=== PATIENT | female | born 1985 | race Asian ===

== ENCOUNTER 2024-04-28 13:05 | Outpatient (REF) | payer OTHER, SELFPAY | END 2024-04-28 13:06 | disposition home or self-care (01) | LOC: HO.LNP 13:05 | PROVIDERS: PCP Internal Medicine; Visit Provider Surgery | DX: R22.2 Localized swelling, mass and lump, trunk (principal) | CPT/HCPCS: 11102; 88305; 99202 ==

== ENCOUNTER 2024-04-28 13:05 | Outpatient (AMB) | payer OTHER, SELFPAY ==
--- NOTE | 2024-04-28 13:05 | MHC.OFFVIS ---
Vital Signs 04/28/24 13:13 Height 5 ft 3 in Weight 154 lb BMI 27.3 BP 121/72 Blood Pressure Location Rt brachial Position Sitting Pulse 75 Intake Visit Reasons: Large Lobulated lesion Intake Note: Patient referred by pcp Dr. Lee for large lobulated lesion on back. Present for yrs. Patient c/o: lesion enlarging. Denies, itch, crust, pain. No personal or family hx of skin ca. 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 Because is become more symptomatic and she was concerned for its appearance, patient would like to have it removed. She has no such lesions elsewhere. Chart was reviewed and patient evaluated [facility] Medical History (Updated 04/28/24 @ 13:10 by ZAK Worrell) section wound complications HTN (hypertension) Family History (Updated 04/28/24 @ 13:11 by ZAK Worrell) Maternal Grandmother Lung cancer Social History (Updated 04/28/24 @ 13:12 by ZAK Worrell) Alcohol intake: current Alcohol intake frequency: holidays/special occasions only Alcohol type: wine Patient Tobacco Use Status: Never used Tobacco Physical Exam Vital Signs: Last Vital Signs Pulse 75 04/28/24 13:13 BP 121/72 04/28/24 13:13 BMI result Body Mass Index 27.3 GI Other: Patient has an exophytic growth measuring approximately 2 x 2 cm with a stalk. No other lesions demonstrated Office Procedures Excision Details: Risks, benefits, alternatives of excision of mid back mass reviewed the patient included but not limited to bleeding, infection, recurrence, numbness, pain, scarring, and the patient wishes to proceed. All questions answered. Consent signed. After appropriate positioning, patient underwent 1% lidocaine and Betadine prep and uneventful tangential excision of a proximally 2 x 2 cm exophytic growth at its stalk. Specimen sent to pathology. Wound base cauterized sterile nitrate followed by bacitracin and sterile dressing. Patient tolerated procedure well. 46457-sjsij/arms/legs 1.1-2cm Procedure code (CPT) selection complete Office Meds lidocaine 1 %-epinephrine 1:100,000 injection solution Performing Provider: Mitchell Capone MD Performing Location: [facility] Administered by: Mitchell Capone MD on 04/29/24 08:01 Dose Route Admin Location Dispensed Lot Number Expiration Date NDC C[employer]ator 10 mL Infiltration 10 mL Assessment & Plan Assessment & Plan (1) Mass of skin of back: Code(s): R22.2 - Localized swelling, mass and lump, trunk Category: Surgical Plan: Patient has been given local instructions including Tylenol/Motrin for pain, ice periodically, bacitracin each day and patient will see me as directed or p.r.n.. All questions answered. Orders: Orders AMB Excision 04/28/24 R22.2 - Localized swelling, mass and lump, trunk Medications: New lidocaine-epinephrine 1 %-1:100,000 10 mL Infiltration ONCE 30 mL 0RF R22.2 - Localized swelling, mass and lump, trunk Coding Level of Care Code New Pt Level 5 (71058) Diagnoses Mass of skin of back R22.2 CPT Codes Trunk/Arms/Legs - CPT: 07785-ltdpf/arms/legs 1.1-2cm ([id number])
[2024-04-28 13:13] VITALS: BP 121/72; PULSE 75; BMI 27.3
== END 2024-04-28 13:24 | disposition home or self-care (01) ==
PROVIDERS: PCP Internal Medicine; Visit Provider Surgery
DX: R22.2 Localized swelling, mass and lump, trunk (principal); I78.1 Nevus, non-neoplastic
CPT/HCPCS: 11102; 99204

== ENCOUNTER 2024-05-26 13:02 | Outpatient (AMB) | payer OTHER, SELFPAY ==
--- NOTE | 2024-05-26 13:03 | A.OFFVIS_ITS ---
Intake Visit Reasons: s/p Large Lobulated lesion Intake Note: Patient here s/p WLE mid back lesion on 04-28-2024. Reports incision healing well. Patient c/o: no concerns. 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 She has no wound issues or complaints. Pathology was benign [facility] Medical History (Updated 05/26/24 @ 13:12 by Mitchell Capone MD) section wound complications HTN (hypertension) Family History (Updated 04/28/24 @ 13:11 by ZKA Worrell) Maternal Grandmother Lung cancer Social History (Updated 04/28/24 @ 13:12 by ZAK Worrell) Alcohol intake: current Alcohol intake frequency: holidays/special occasions only Alcohol type: wine Patient Tobacco Use Status: Never used Tobacco Physical Exam Back/Spine/Pelvis Other: Mid back wound site is clean dry and intact healing very well Assessment & Plan Assessment & Plan (1) Mass of skin of back: Code(s): R22.2 - Localized swelling, mass and lump, trunk Category: Surgical (2) Postop check: Code(s): Z09 - Encounter for follow-up examination after completed treatment for conditions other than malignant neoplasm Category: Medical Plan Patient has been given local instructions, and will otherwise follow-up p.r.n.. All questions answered. Coding Level of Care Code Global (30866) Diagnoses Mass of skin of back R22.2 Postop check Z09
== END 2024-05-26 13:20 | disposition home or self-care (01) ==
PROVIDERS: PCP Internal Medicine; Visit Provider Surgery
DX: R22.2 Localized swelling, mass and lump, trunk (principal); Z09 Encounter for follow-up examination after completed treatment for conditions other than malignant neoplasm
CPT/HCPCS: 99212

== ENCOUNTER → 2024-05-26 13:02 | Outpatient (BNVA) | payer OTHER, SELFPAY | PROVIDERS: PCP Internal Medicine; Visit Provider Surgery | DX: Z09 Encounter for follow-up examination after completed treatment for conditions other than malignant neoplasm (principal); Z87.2 Personal history of diseases of the skin and subcutaneous tissue; Z98.890 Other specified postprocedural states | CPT/HCPCS: 99212 ==